=== PATIENT | female | born 1985 | race Caucasian/White ===

== ENCOUNTER 2024-12-04 02:07 | Emergency (ER) | payer BC, SELFPAY ==
[2024-12-04 02:10] VITALS: BMI 30.1
--- NOTE | 2024-12-04 02:14 | PD.EDVAGBL ---
ED OB Contraction Preg RMI/HPI General Chief complaint: Vaginal Bleeding Stated complaint: 8WKS PREG VAGINAL BLEEDING Time Seen by Provider: 12/04/24 02:13 Arrival date/time: 12/04/24 02:07 RME / HPI RME / HPI Narrative: See [facility] for Dr. Black's HPI documentation. Related Data Previous Rx's ?Medication ?Instructions ?Recorded acetaminophen 300 mg-codeine 30 mg 2 tab PO Q8H PRN pain #20 tabs 12/04/24 tablet ibuprofen 800 mg tablet 800 mg PO Q8H PRN pain #30 tabs 12/04/24 nitrofurantoin 100 mg PO BID #14 caps 12/04/24 monohydrate/macrocrystals 100 mg capsule (Macrobid) ondansetron 4 mg disintegrating 4 mg PO TID PRN nausea and 12/04/24 tablet vomiting 30 days #10 tabs Allergies Allergy/AdvReac Type Severity Reaction Status Date / Time CHERRIES Allergy Uncoded 12/04/24 02:08 Review of Systems Review of Systems Systems Reviewed: All systems reviewed, normal except as documented Past Medical History Social History SMOKING STATUS: Never smoker ED Exam Narrative Physical exam: See [facility] for Dr. Black's physical exam documentation. Course Quality Measures none Orders Category Date Time Status US OB <= 14 weeks fetus Stat Exams 12/04/24 02:15 Completed Beta HCG,Quantitative Stat Lab 12/04/24 02:32 Completed Bilirubin,Direct Stat Lab 12/04/24 02:32 Completed CBC Stat Lab 12/04/24 02:32 Completed CMP [Comprehensive Metabolic Panel] Stat Lab 12/04/24 02:32 Completed Magnesium Stat Lab 12/04/24 02:32 Completed Rh Testing Only Stat Lab 12/04/24 02:32 Completed TSH [Thyroid Stimulating Hormone] Stat Lab 12/04/24 02:32 Completed UA, C/S IF [Urinalysis, C/S if Indicated] Stat Lab 12/04/24 03:03 Completed Urine Culture Stat Lab 12/04/24 03:03 Completed Ibuprofen Tab [Motrin Tab] Med 12/04/24 04:22 Discontinued 800 mg PO X1 ONE KCL 10% Liq UDC 15 ML Med 12/04/24 04:19 Discontinued 20 meq PO X1 ONE Nitrofurantoin Macro [Macrobid] Med 12/04/24 04:19 Discontinued 100 mg PO X1 ONE Ondansetron Odt [Zofran Odt] Med 12/04/24 03:13 Discontinued 4 mg PO X1 ONE oxyCODONE/APAP 5/325 [Percocet 5/325] Med 12/04/24 03:13 Discontinued 2 tab PO X1 ONE Vital Signs Vital signs: Vital Signs Temperature 97.9 F 12/04/24 02:24 Pulse Rate 71 12/04/24 02:24 Respiratory Rate 18 12/04/24 02:24 Blood Pressure 129/82 12/04/24 02:24 Pulse Oximetry (%) 100 12/04/24 02:24 Oxygen Delivery Method Room Air 12/04/24 02:24 Vaginal Bleeding MDM Narrative MDM Narrative: This section includes all my notes and documentations, including HPI, PE, and ED course. Suleiman Black MD HPI: 39yo female who is ~8 weeks gestation here with vaginal bleeding. Reports a gush of blood in the bathroom just prior to arrival. Patient also has abdominal cramping. No other complaints reported. ROS: All negative except as documented in HPI. Physical Exam: General: Alert and oriented. No acute distress when remaining still. Eyes: Conjunctivae and lids clear. ENT: No nasal congestion. Neck: Supple. Heart: RRR. Lungs: No respiratory distress. Good air movement. No rhonchi, wheezing, rales. Abdomen: Soft and nontender. Normal bowel sounds. No distension. No rebound or guarding. Back: No CVA tenderness. Skin: Warm and dry. Neuro: Alert and oriented X 3. I reviewed all diagnostic test results. My review of the ultrasound report is: - Small intrauterine sac-like structure in the lower uterine segment without yolk sac or pole, measuring 1.6 cm MSD (6 weeks 3 days) Blood tests remarkable for hCG 7229. UA remarkable for positive leukocyte esterase, 4474 RBCs, and 85 WBCs. At this point, diagnoses include: Miscarriage UTI Treatment here included: [place] Zofran Oral KCl Macrobid Ibuprofen Recommend outpatient management Based on my best medical judgment, made decision no further evaluation or treatment indicated at this time. Patient understands and agrees to the discharge instructions customized and printed, see below. Discharge Instructions from Dr. Black printed for you: 1. Unfortunately, you are having a miscarriage. We are extremely sorry. 2. You are going to have more pain and bleeding as your body tries to get everything out of the uterus. 3. Ibuprofen 800 mg every 6-8 hours today and tomorrow to decrease inflammation then as needed. Tylenol with codeine for more pain. 4. Take Macrobid for severe UTI. For good hydration, increase oral fluid and maintain clear urine. If dark or yellow, increase oral fluid. Zofran for nausea/vomiting. 5. See a private doctor on 12/07/2024 for recheck and further care. Ask to review all test results and official radiology reports, to make sure you receive all necessary follow-ups and monitoring, including final urine culture results from today. Ask for help until you are completely better. 6. Seek immediate medical care with severe heavy bleeding (soaking more than 3 pads per hours), intolerable pain, or with any concerns. Suleiman Black MD Patient data External records reviewed:: [facility] previous records (Per chart review, patient has no previous ED visits or admissions to this facility.) Clinical information provided by:: patient Social determinants that could affect healthcare access:: none Patient has the following chronic illnesses:: none How is presenting disease/condition affected by chronic disease/condition?: no chronic disease Evaluation data The following diagnostics were reviewed and interpreted by me:: lab results and radiology exam(s) Lab and/or radiology exams considered but not ordered:: none Interpretation Summary: I reviewed all diagnostic test results. My review of the ultrasound report is: - Small intrauterine sac-like structure in the lower uterine segment without yolk sac or pole, measuring 1.6 cm MSD (6 weeks 3 days) Blood tests remarkable for hCG 7229. UA remarkable for positive leukocyte esterase, 4474 RBCs, and 85 WBCs. Medications / Prescriptions Medications or Prescriptions considered but not ordered:: none Medication administrations:: Medication Administration History Discontinued Medications Ibuprofen (Ibuprofen Tab 400 Mg Tablet) 800 mg PO X1 ONE Stop: 12/04/24 04:23 Last Admin: 12/04/24 05:07 Dose: 800 mg Documented By: IMELDA Nitrofurantoin Macrocrystals (Nitrofurantoin Macro 100 Mg Capsule) 100 mg PO X1 ONE Stop: 12/04/24 04:20 Last Admin: 12/04/24 05:08 Dose: 100 mg Documented By: IMELDA Ondansetron HCl (Ondansetron Odt 4 Mg Tabrap) 4 mg PO X1 ONE; Protocol Stop: 12/04/24 03:14 Last Admin: 12/04/24 03:51 Dose: 4 mg Documented By: IMELDA Oxycodone/Acetaminophen (Oxycodone/Apap 5/325 Tablet) 2 tab PO X1 ONE Stop: 12/04/24 03:14 Last Admin: 12/04/24 03:51 Dose: 2 tab Documented By: IMELDA Potassium Chloride (Potassium Chloride 10% 20 Meq/15 Ml Udc) 20 meq PO X1 ONE Stop: 12/04/24 04:20 Last Admin: 12/04/24 05:07 Dose: 20 meq Documented By: Miriam Marshall, Oral KCl, Macrobid, Ibuprofen Consultations Consultation(s) initiated? (list below): No Diagnosis Vaginal Bleeding Differential Diagnosis: missed , threatened , incomplete and other (vaginal bleeding in early , miscarriage) Most likely diagnosis given after review of the tests above:: Miscarriage, UTI Admission Indicated Admission indicated?: not indicated Explain why admission is indicated or not indicated:: With no condition needing emergent intervention, there was no indication for admission. Admission Request Was there a request for admission?: No Disposition Plan Disposition Plan: Discharge Discharge Attestation Discharge Attestation: The patient and all family members were given an opportunity to ask questions and understood the discharge instructions. Discharge instructions specifically effects, indications for sooner follow up or return to the emergency department, and the expected course of current diagnosis. Patient condition: Stable Discharge Plan Plan Patient Disposition: HOME (Self Care) Prescriptions/Referrals Prescriptions/Med Rec: New ibuprofen 800 mg tablet 800 mg PO Q8H PRN (Reason: pain) Qty: 30 0RF acetaminophen-codeine 300-30 mg tablet 2 tab PO Q8H MDD 6 PRN (Reason: pain) Qty: 20 0RF ondansetron 4 mg tablet,disintegrating 4 mg PO TID PRN (Reason: nausea and vomiting) 30 Days Qty: 10 0RF nitrofurantoin monohyd/m-cryst [Macrobid] 100 mg capsule 100 mg PO BID Qty: 14 0RF Rx Instructions: must administer with a meal/food Referrals: Jas Paredes MD [Primary Care Provider] - In 1 week Problem List Clinical Impression: Miscarriage, UTI (urinary tract infection) Patient/Caregiver Discharge Instructions Discharge Activity: activity as tolerated Education Materials: ED Miscarriage, Incomplete, ED CYSTITIS Female Adult Additional Instructions: Discharge Instructions from Dr. Black printed for you: 1. Unfortunately, you are having a miscarriage. We are extremely sorry. 2. You are going to have more pain and bleeding as your body tries to get everything out of the uterus. 3. Ibuprofen 800 mg every 6-8 hours today and tomorrow to decrease inflammation then as needed. Tylenol with codeine for more pain. 4. Take Macrobid for severe UTI. For good hydration, increase oral fluid and maintain clear urine. If dark or yellow, increase oral fluid. Zofran for nausea/vomiting. 5. See a private doctor on 12/07/2024 for recheck and further care. Ask to review all test results and official radiology reports, to make sure you receive all necessary follow-ups and monitoring, including final urine culture results from today. Ask for help until you are completely better. 6. Seek immediate medical care with severe heavy bleeding (soaking more than 3 pads per hours), intolerable pain, or with any concerns. Print Language: Kyrgyz Stand Alone Forms: [facility] Award Info., Patient Portal Info Letter
--- NOTE | 2024-12-04 02:15 | XR_ITS ---
Examination: Complete OB ultrasound, less than 14 weeks, transabdominal Date and time of exam: December 04, 2024 0308 hrs. Indications: Vaginal bleeding and cramping beginning 1:30 AM this morning, 8 week by history. Technique: Obstetrical ultrasound images less than 14 weeks performed via transabdominal imaging Findings: Intrauterine gestational sac in the lower uterine segment This corresponds to 6 weeks 3 days gestational age. No pole, no cardiac activity Right ovary 2.2 cm arterial flow. Left ovary 1.9 cm arterial flow Impression: Spontaneous in progress, recommend continued follow-up
[2024-12-04 02:24] VITALS: BP 129/82; PULSE 71; RESP 18; TEMP 36.6; O2SAT 100
[2024-12-04 03:03] LABS: Basophils # (Auto) 0.1 Thou/mm3 (0.0-0.2); Basophils % (Auto) 1 % (0-2.5); Eosinophils # (Auto) 0.2 Thou/mm3 (0.0-0.5); Eosinophils % (Auto) 1 % (0-10); Hematocrit 41.9 % (36.0-46.0); Hemoglobin 13.7 g/dL (12.0-16.0); Immature Granulocytes Auto 0.03 Thou/mm3 (0.00-0.00); Lymphocytes # (Auto) 2.9 Thou/mm3 (1.0-4.8); Lymphocytes % (Auto) 22 % (10-50); Mean Corpuscular HGB Conc 32.7 g/dl (31.0-37.0); Mean Corpuscular Hemoglobin 27.5 pg (25.0-35.0); Mean Corpuscular Volume 84 fL (80-100); Monocytes # (Auto) 0.7 Thou/mm3 (0.0-0.8); Monocytes % (Auto) 5 % (0-12); Neutrophils # (Auto) 9.4 Thou/mm3 (1.8-7.7); Neutrophils % (Auto) 71 % (37-80); Nucleated Red Blood Cell # 0.00 Thou/mm3 (0.00-0.00); Nucleated Red Blood Cell % 0 /100 WBC (0); Platelet Count 277 Thou/mm3 (140-440); RDW Standard Deviation 41.4 fL (36.4-46.3); Red Blood Count 4.98 Miln/mm3 (4.00-5.20); White Blood Count 13.3 Thou/mm3 (3.6-11.0)
[2024-12-04 03:32] LABS: Collection Type, Urine Clean Catch
[2024-12-04 03:40] LABS: Alanine Aminotransferase 13 U/L (10-49); Albumin, Serum 4.4 gm/dL (3.5-5.0); Albumin/Globulin Ratio 1.9 (1.2-2.2); Alkaline Phosphatase 44 U/L (46-116); Anion Gap 13 (7-16); Aspartate Amino Transferase 17 U/L (0-34); BUN/Creatinine Ratio 8 Ratio (12-20); Bilirubin,Direct < 0.1 mg/dL (0.0-0.3); Bilirubin,Total 0.3 mg/dL (0.3-1.2); Blood Urea Nitrogen 6 mg/dL (9-23); Calcium 9.7 mg/dL (8.3-10.6); Calcium (Corrected) 9.7 mg/dL (8.5-10.1); Carbon Dioxide 21.3 mMol/L (20.0-31.0); Chloride 106 mMol/L (98-107); Creatinine (Component) 0.8 mg/dL (0.6-1.3); Estimated Creatinine Clearance 94.7 mL/min (>60); Globulin 2.3 gm/dL (2.3-3.5); Glucose 108 mg/dL (74-106); Magnesium 1.7 mg/dL (1.6-2.6); Osmolality,Calculated 278 (275-295); Potassium 3.4 mMol/L (3.4-5.1); Sodium 140 mMol/L (136-145); Thyroid Stimulating Hormone 6.71 uIU/mL (0.55-4.78); Total Protein 6.7 gm/dL (5.7-8.2); eGFR > 60 See Note
[2024-12-04 03:46] LABS: Beta HCG,Quantitative 7229 mIU/mL (<5.0)
[2024-12-04] MEDS: ONDANSETRON ODT 4 MG TABRAP PO (03:51)
--- NOTE | 2024-12-04 03:54 | PC.NURSE ---
meds taken to pt in lobby. pt resting quietly with significant other at her side. pt instructed to let rn at desk know if somthing changes.
[2024-12-04 03:55] LABS: Bilirubin,Urine Negative (Negative); Blood,Urine 3+ (Negative); Clarity,Urine Turbid (Clear/Hazy); Color,Urine Brown (Lt Yel-Yel); Glucose, Urine Negative (Negative); Ketones,Urine Negative (Negative); Leukocyte Esterase,Urine Positive (Negative); Nitrite,Urine Negative (Negative); PH,Urine 6.5 (5.0-7.0); Protein,Urine 1+ (Neg - Trace); RBC,Urine 4474 /hpf (0-3); Specific Gravity,Urine 1.017 (1.001-1.035); Squamous Epithelial Cell,Urine 2 /hpf (0-5); Urobilinogen,Urine Negative mg/dL (0.0-1.0); WBC,Urine 85 /hpf (0-5)
[2024-12-04 03:56] LABS: Culture Indicated,Urine Yes
--- NOTE | 2024-12-04 04:14 | PRELIM_ITS ---
Obstetric ultrasound transabdominal. December 04, 2024 0308 hours Clinical history: Cramping and bleeding (GA 8 weeks) Technique: Real-time ultrasound was performed using Duplex scanning including arterial inflow, venous outflow, color and spectral Doppler analysis of both ovaries. Comparison: No prior study is available for comparison. Findings: The uterus measures 11.2 x 5.8 x 5.8 cm. The endometrium measures 1.3 cm. A small anechoic sac-like structure is seen within the endometrial cavity in the lower uterine segment. The mean sac diameter (MSD) measures 1.6 cm, corresponding to approximately 6 weeks 3 days gestation. No yolk sac or pole is demonstrated. Trace fluid is noted within the endometrial cavity towards the end of the examination. The right ovary measures 2.2 x 2 x 1.7 cm (volume ~3.8 cc) and is unremarkable. The left ovary measures 1.9 x 1.4 x 1.5 cm (volume ~2.0 cc) and is unremarkable. No adnexal mass is identified. No significant free fluid is demonstrated in the pelvis. Impression: 1. Small intrauterine sac-like structure in the lower uterine segment without yolk sac or pole, measuring 1.6 cm MSD (6 weeks 3 days). This is discordant with the clinical gestational age of 10 weeks 5 days. 2. Findings raise concern for early failure/active miscarriage. 3. Differential considerations include: Early intrauterine gestation of uncertain viability in the setting of an occult ectopic . Clinical correlation with quantitative ??-hCG is recommended, along with short- interval follow-up ultrasound. Report Electronically Signed By: Jonah Guzman 12/04/2024 4:13:19 AM [EST]
[2024-12-04 04:32] VITALS: BP 119/80; PULSE 88; RESP 18; O2SAT 100
[2024-12-04] MEDS: POTASSIUM CHLORIDE 10% 20 MEQ/15 ML UDC PO (05:07)
[2024-12-04] MEDS: IBUPROFEN TAB 400 MG TABLET 800 MG PO (05:07)
[2024-12-04] MEDS: NITROFURANTOIN MACRO 100 MG CAPSULE PO (05:08)
== END 2024-12-04 05:11 | disposition home or self-care (01) ==
PROVIDERS: Emergency Provider Emergency Medicine; PCP Internal Medicine
DX: O03.89 Complete or unspecified spontaneous abortion with other complications (principal); O03.88 Urinary tract infection following complete or unspecified spontaneous abortion
CPT/HCPCS: 36415; 76801; 80053; 81001; 82248; 83735; 84443; 84702; 85025; 86901; 87086; 99283; Q0162; A9270